=== PATIENT | male | born 1980 | race Caucasian/White ===

== ENCOUNTER 2017-01-11 06:53 | Emergency (ER) | payer SELFPAY ==
[2017-01-11] MEDS ORDERED: AMOXicillin 250 MG CAP ONE (07:26)
[2017-01-11] MEDS ORDERED: HYDROcodone/Acetaminophen 10/325 mg Tablet ONE (07:45)
== END 2017-01-11 07:50 | disposition home or self-care (01) ==
LOC: BURERS 06:53
DX: J02.9 Acute pharyngitis, unspecified (principal); H66.92 Otitis media, unspecified, left ear; F17.210 Nicotine dependence, cigarettes, uncomplicated
CPT/HCPCS: 99282